=== PATIENT | female | born 1945 | race Hispanic/Latino ===

== ENCOUNTER 2023-01-01 01:11 | Emergency (ER) | payer MEDICAID, SELFPAY ==
[2023-01-01] VITALS (8 sets, daily range): BP systolic 123–136; BP diastolic 66–84; PULSE 102–126; RESP 18–28; TEMP 37.2–37.8; O2SAT 100
--- NOTE | ~2023-01-01 | XR_ITS ---
Portable chest x-ray Comparison: None Clinical History: Line placement Findings: Right-sided central venous line is in satisfactory position. Lungs are clear, without foca l consolidation or pleural effusion. No pneumothorax. Cardiomediastinal silhouette is stable. Bones and soft tissues are unremarkable. Impression: Right-sided central venous line in place. Clear lungs. No pneumothorax. Reviewed, dictated and finalized at location M. Impression: Right-sided central venous line in place. Clear lungs. No pneumothorax.
[2023-01-01 03:51] LABS: Basophils Percent Auto 0.2 % (0.2-1.2); Immature Granulocyte Absolute 0.06 K/mm3 (0.00-0.031); Immature Granulocyte Percent A 0.5 % (0-0.5); Lymphocytes Absolute Auto 1.68 K/mm3 (0.9-3.2); Lymphocytes Percent Auto 13.6 % (18.3-44.2); Mean Corpuscular HGB Conc 32.2 g/dl (32-36); Mean Corpuscular Hemoglobin 26.4 pg (26-34); Mean Corpuscular Volume 82.1 fl (80-100); Mean Platelet Volume 8.9 fl (7.4-10.4); Monocytes Absolute Auto 0.5 K/mm3 (0.1-0.6); Neutrophils Absolute Auto 10.1 K/mm3 (1.3-6.7); Neutrophils Percent Auto 81.7 % (45.5-73.1); Platelet Count Result 575 k/mm3 (150-375); Red Blood Count 2.46 M/mm3 (4.2-5.4); Red Cell Distribution Width 16.5 % (11.5-14.5); White Blood Count 12.4 K/mm3 (4.5-10.0)
[2023-01-01] MEDS: SODIUM CHLORIDE 0.9% IV 250 ML 999 ML ×2 (03:53→04:00)
[2023-01-01 03:54] LABS: Hematocrit 20.2 % (37.0-47.0); Hemoglobin 6.5 g/dL (12.0-15.0)
--- NOTE | 2023-01-01 04:00 | PC.NURSE ---
pt. given 80 mg ivp vorb erp.
[2023-01-01 04:03] LABS: Alanine Aminotransferase 27 U/L (6-35); Albumin Level 3.3 g/dL (3.5-5.1); Alkaline Phosphatase 109 U/L (38-126); Anion Gap 9 mmol/L (8-16); Aspartate Amino Transferase 32 U/L (14-36); Bilirubin,Total 0.5 mg/dL (0.2-1.3); Blood Urea Nitrogen 21 mg/dL (7-17); Calcium 8.6 mg/dL (8.4-10.2); Carbon Dioxide 27 mmol/L (22-30); Chloride 97 mmol/L (98-107); Estimated CRCL calculation 60 ml/min; Estimated Glomerular Filt Rate > 60; Glucose 156 mg/dL (65-110); Potassium 4.6 mmol/L (3.4-5.0); Sodium 133 mmol/L (137-145)
[2023-01-01 04:15] LABS: INR 2.2; Prothrombin Time 23.9 Seconds (11.1-14.7)
[2023-01-01 04:16] LABS: Partial Thromboplastin Time 55.3 SECONDS (22.3-36.8)
--- NOTE | 2023-01-01 04:16 | ED.GENADULT ---
HPI - General Adult General Chief complaint: Wound/Laceration Stated complaint: seeping leg wounds Time Seen by Provider: 01/01/23 03:39 History of Present Illness HPI narrative: is a 77-year-old female who originally presented to the ED for a leg wound. When she was taken to the room she was found to have a diaper full of melanotic stool. This point she is lethargic but arousable. She is Pakistani speaking. She said that she is complaining of foot pain but has no other injuries at this time. she has a history of arterial and vascular occlusions. The family says that she is not on any anticoagulation and have a bag of her meds with her. Related Data Allergies Allergy/AdvReac Type Severity Reaction Status Date / Time No Known Allergies Allergy Verified 01/01/23 01:12 [facility] Past Medical History Medical History Hypertension Exam Narrative: APPEARANCE: Patient is lethargic but arousable Head: atraumatic. EYES: EOMI, conjunctiva pallor NOSE: Atraumatic NECK: Trachea midline RESPIRATORY: tachypneic, clear lung sounds CARDIOVASCULAR: tachycardic, no pulse pulses palpable in the left foot ABDOMINAL: soft nondistended no guarding or rebound, significant melanotic stool in the patient's diaper and rectal vault MUSCULOSKELETAl: No obvious deformities NEURO: Alert. Moving 4/4 extremities SKIN:: wound to the dorsal aspect of the left foot PSYCHIATRIC: Normal affect Course Vital Signs Vital signs: Vital Signs Temperature 99.0 F 01/01/23 01:14 Pulse Rate 126 H 01/01/23 01:14 Respiratory Rate 18 01/01/23 01:14 Blood Pressure 127/66 01/01/23 01:14 Pulse Oximetry 100 01/01/23 01:14 Oxygen Delivery Room Air 01/01/23 01:14 Temperature 100.0 F H 01/01/23 03:57 Pulse Rate 118 H 01/01/23 03:57 Respiratory Rate 25 H 01/01/23 03:57 Blood Pressure 123/78 01/01/23 03:57 Pulse Oximetry 100 01/01/23 03:50 Oxygen Delivery Room Air 01/01/23 01:14 Medical Decision Making [facility] Narrative Medical decision making narrative: -Presentation: 77-year-old female presenting ED for foot pain but found to have a massive upper GI bleed. Patient is tachycardic pale and lethargic. Two large-bore IVs were started by . 2 units of uncross blood have been ordered. 80 mg of Protonix have been given. a central line was placed in the right IJ under ultrasound guidance. patient's initial hemoglobin is 6.5 although in setting of acute bleed that can be falsely elevated. Patient's blood pressure started to respond to fluids and was decreasing at time of transport. Given the severity of the patient's condition she will be transferred via helicopter to [facility]. -DDX includes but is not limited to: -Co-morbidities complicating care: Pakistani-speaking, peripheral vascular disease, hypertension, anemia -Social determinants of health: patient lives with family in recently moved from the [place] -External Chart Review: review of outside doctor notes however they are in Pakistani -Hx from independent Sources: family member -Discussion of Management/Consultants: [facility] transfer line, Dr. Allred - [facility], Dr. Merino - ED -Independent interpretation of studies: Laboratory studies returned as the patient was being transported to helicopter. Hemoglobin was 6.5. White count 12.4. INR 2.2 although the patient states she is not on anticoagulation. Metabolic panel within normal limits. chest x-ray confirmed location of the central line. No infiltrates. Dx tests considered but not ordered: -Procedures: Peripheral lines x2, central line right IJ -Interventions: 2 units of uncrossed blood, 80 mg Protonix -Shared decision making / Disposition: patient will be transferred via [facility] to [facility] for further management. -RX Vital Signs Vital Signs: Vital Signs Temperature 99.0 F 01/01/23 01:14 Pulse Rate 126 H 01/01/23 01:14 Respiratory
== END 2023-01-01 04:31 | disposition short-term general hospital (02) ==
PROVIDERS: Emergency Provider Emergency Medicine
DX: K92.2 Gastrointestinal hemorrhage, unspecified (principal); R57.8 Other shock; I10 Essential (primary) hypertension; S91.302A Unspecified open wound, left foot, initial encounter; X58.XXXA Exposure to other specified factors, initial encounter
CPT/HCPCS: 36415; 36430; 36556; 80053; 85025; 85610; 85730; 86850; 86900; 86901; 86920; 96360; 96374; 99285; C1751; C9113; J7030; J7050; P9016

== ENCOUNTER 2023-02-21 19:07 | Emergency (ER) | payer MEDICAID, SELFPAY ==
[2023-02-21 19:26] VITALS: BP 159/78; PULSE 110; RESP 12; TEMP 36.9; O2SAT 100
--- NOTE | 2023-02-21 20:09 | ED.WOUNDLAC ---
HPI - Wound/Laceration General Chief Complaint: Wound/Laceration Stated Complaint: bleeding and pain Time Seen by Provider: 02/21/23 20:09 Source: patient Mode of arrival: ambulatory Limitations: no limitations History of Present Illness HPI narrative: 77-year-old female presents for wound check of the left BKA site. 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 Had sutures removed on 02/08/2023. States after the sutures were removed the lateral aspect of the incision slowly opened. Endorses scabbing and mild bleeding to the site at times. Patient and family are unsure how to care for the wound. Denies increasing pain, redness, swelling, or drainage, fevers or chills Patient is primarily Khmer-speaking and requests her [id number] translate. Related Data Home Medications Medication Instructions Recorded Confirmed Protonix 02/21/23 aspirin 81 mg tablet 81 mg PO DAILY 02/21/23 02/21/23 atorvastatin 40 mg tablet 40 mg PO DAILY 02/21/23 02/21/23 losartan-hydrochlorothiazide 02/21/23 Allergies Allergy/AdvReac Type Severity Reaction Status Date / Time No Known Allergies Allergy Verified 02/21/23 19:30 Review of Systems Review of Systems: CONSTITUTIONAL: Denies body aches, fever, chills, or sweats. EYES: Denies visual changes, redness, or discharge. ENT: Denies rhinorrhea, congestion CARDIOVASCULAR: Denies chest pain, palpitations, or edema. RESPIRATORY: Denies cough or dyspnea. GASTROINTESTINAL: Denies abdominal pain, nausea, vomiting, or diarrhea. SKIN: Per HPI MUSCULOSKELETAL: Denies back pain, joint pain, or myalgia. NEUROLOGIC: Denies headache, numbness, tingling, or weakness. [facility] Past Medical History Medical History Hypertension Comments At time of signature, I have reviewed and agree with nursing past medical, surgical, social and family history unless otherwise noted. Please see nursing chart for further information. There is no relevant family history pertinent to the presenting complaint Exam Narrative: GENERAL: Well-appearing HEAD: Normocephalic, atraumatic. EYES: conjunctivae clear, and EOMI. ENT: Mucous membranes moist. NECK: Supple. No lymphadenopathy CHEST: Clear to auscultation. HEART: Regular rate and rhythm. SKIN: Warm, dry. Left knee lateral aspect of BKA incision is scabbed, approx 3cm x 0.5cm; no active drainage, no surrounding induration or purulence. Nontender. NEURO: Alert and oriented x3. Course Course Emergency Course: Patient is aware of diagnosis, understands and agrees to treatment plan. Anticipatory guidance given. Patient agrees to follow-up as directed and is aware of reasons to seek care at the emergency department. Portions of this record may have been created with voice recognition software Level of Care: Express Care Visit Vital Signs Vital signs: Vital Signs Temperature 98.4 F 02/21/23 19:26 Pulse Rate 110 H 02/21/23 19:26 Respiratory Rate 12 02/21/23 19:26 Blood Pressure 159/78 H 02/21/23 19:26 Pulse Oximetry 100 02/21/23 19:26 Oxygen Delivery Room Air 02/21/23 19:26 Temperature 98.4 F 02/21/23 19:26 Pulse Rate 110 H 02/21/23 19:26 Respiratory Rate 12 02/21/23 19:26 Blood Pressure 159/78 H 02/21/23 19:26 Pulse Oximetry 100 02/21/23 19:26 Oxygen Delivery Room Air 02/21/23 19:26 Reviewed MDM - Wound/Laceration MDM Narrative Medical decision making narrative: Psych winced with wound cleanser. Site does not appear to be infected, site appears healing and scabbed; however given that it has been opening for almost 2 weeks will send prescription for antibiotic. Discussed wound care and signs and symptoms of infection. Advised patient to follow-up with the surgeon tomorrow for further evaluation of the wound and provided [facility] contact information. Discussed physical exam findings. Advised s
== END 2023-02-21 20:30 | disposition home or self-care (01) ==
PROVIDERS: Emergency Provider Nurse Practitioner Family
DX: Z48.01 Encounter for change or removal of surgical wound dressing (principal); Z89.512 Acquired absence of left leg below knee; I10 Essential (primary) hypertension
CPT/HCPCS: 99213; G0463

== ENCOUNTER 2023-03-03 11:52 | Emergency (ER) | payer MEDICAID, SELFPAY ==
[2023-03-03 11:54] VITALS: BP 168/81; PULSE 102; RESP 18; TEMP 36.9; O2SAT 100
--- NOTE | 2023-03-03 12:05 | PC.NURSE ---
Pt was wheeled into room in her wheelchair with a BKA on the left lower leg. Family states that about a week ago pt started having a scab develop on her amputation site. Pt wants the scab removed so she can wear her prosthetic leg. Pt has no other symptoms or pain. Pt states that she wants the site cleaned and the scab removed.
[2023-03-03 12:30] VITALS: BP 168/85; PULSE 90; RESP 16; O2SAT 95
--- NOTE | 2023-03-03 12:34 | ED.EXTPRO ---
HPI - Extremity Problem General Chief complaint: Extremity Problem,Nontraumatic Stated complaint: wound cleaning Time Seen by Provider: 03/03/23 12:12 Source: patient and family Mode of arrival: ambulatory History of Present Illness HPI Narrative: Patient is status post left below-knee amputation 2 months ago because of poor peripheral circulation. Patient have part of the surgical scar is not healing well with thick scab. She denies any pain, discharge, fever, chills, redness or tenderness at that area. Patient is concerned about wearing prosthesis can make it worse and she would like to take the scar out.. 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 Patient would like to get a refill for losartan/hydrochlorothiazide. Related Data Home Medications Medication Instructions Recorded Confirmed Protonix 02/21/23 aspirin 81 mg tablet 81 mg PO DAILY 02/21/23 02/21/23 atorvastatin 40 mg tablet 40 mg PO DAILY 02/21/23 02/21/23 losartan-hydrochlorothiazide 02/21/23 Allergies Allergy/AdvReac Type Severity Reaction Status Date / Time No Known Allergies Allergy Verified 03/03/23 12:02 Review of Systems Review of Systems: All systems reviewed & are unremarkable except as noted in HPI and below PMFSH Past Medical History Medical History Hypertension Exam Narrative: General appearance: Well-developed, well-nourished Skin: Normal color Head: Normocephalic, nontraumatic Eyes: Clear conjunctiva ENT: Oropharynx normal, ears normal, nose normal Neck: Supple, nontender Chest and respiratory: Airway patent, no respiratory distress, no accessory muscle use Heart: Regular rate/rhythm Abdomen: Soft, nontender, no organomegaly, quiet bowel sounds Vascular: Normal peripheral pulses, normal capillary refill. Musculoskeletal: Left below-knee amputation showed 3 cm surgical scar with thick scab on it. No discharge, no erythema, no localized tenderness, no fluctuation, Neurologic: Alert and oriented ?3, [employer]PRES[employer]IVE is normal as tested, no gross motor deficit Course Vital Signs Vital signs: Vital Signs Temperature 36.9 C 03/03/23 11:54 Pulse Rate 102 H 03/03/23 11:54 Respiratory Rate 18 03/03/23 11:54 Blood Pressure 168/81 H 03/03/23 11:54 Pulse Oximetry 100 03/03/23 11:54 Oxygen Delivery Room Air 03/03/23 11:54 Temperature 36.9 C 03/03/23 11:54 Pulse Rate 102 H 03/03/23 11:54 Respiratory Rate 18 03/03/23 11:54 Blood Pressure 168/81 H 03/03/23 11:54 Pulse Oximetry 100 03/03/23 11:54 Oxygen Delivery Room Air 03/03/23 11:54 MDM - Extremity (Nontraumatic) MDM Narrative Medical decision making narrative: Surgical scar healing process, poor peripheral circulation, no signs of infection at this time, patient was advised to follow-up with a amputation physician for more protection and apply certain pads to wear the prosthesis Differential Diagnosis Differential diagnosis: Likely other (Delayed healing process secondary to poor vascular circulation) Critical Care Time Critical Care Time Critical Care Time: Yes Total Critical Care Time: 10 Discharge Plan Discharge Clinical Impression: Encounter for assessment of wound Hypertension Qualifiers: Hypertension type: unspecified Qualified Code(s): I10 - Essential (primary) hypertension Patient Disposition: Home, Self-Care Condition: Stable Instructions: Antibiotic Form, Chronic Wounds (ED) Additional Instructions: Discharge instructions, follow-up with your amputation physician for further evaluation. Return if symptoms are worsening , call your family physician for appointment, mj
[2023-03-03 13:30] VITALS: BP 156/82; PULSE 90; RESP 16; TEMP 36.8; O2SAT 100
== END 2023-03-03 13:40 | disposition home or self-care (01) ==
PROVIDERS: Emergency Provider Emergency Medicine
DX: I10 Essential (primary) hypertension (principal); Z89.512 Acquired absence of left leg below knee; Z79.82 Long term (current) use of aspirin
CPT/HCPCS: 99283